=== PATIENT | male | born 1940 | race Caucasian/White ===

== ENCOUNTER → 2021-06-25 | Outpatient (CLI) | payer OTHER ==
[~2021-06-25] MED LIST: CYANOCOBAL1000 MCG/1 SQ; FLOMAX0.4 MG PO; FUROSEMIDE20 MG PO; GLIPIZIDE-METF1 EAC2 PO; IPRAT-ALBUT 0.5-3 ML NEB; LANTUS SOL100 UNIT/1 SQ; LOPRESSOR 25 MG25 MG PO; LORTAB 7.5-3251 EACH PO; NOVOLOG FL100 UNIT/1 INJ; POTASSIUM CHLO10 ME1 PO; PRINIVIL10 MG PO; PROSCAR5 MG PO; PROTONIX 40 MG40 M1 PO; SODIUM CL 0.91000 ML IV; THERAGRAN M TAB1 EA PO
== END ==
LOC: RAD 07:49
DX: Z90.49 Acquired absence of other specified parts of digestive tract (principal); K57.30 Diverticulosis of large intestine without perforation or abscess without bleeding; Z98.0 Intestinal bypass and anastomosis status
CPT/HCPCS: 74270

== ENCOUNTER → 2021-07-08 | Outpatient (CLI) | payer OTHER ==
[2021-07-08 10:56] LABS: HEMOGLOBIN 12.1 gm/dl (14.0-17.5); RED BLOOD COUNT 4.07 M/UL (4.20-5.50); WHITE BLOOD COUNT 7.1 K/UL (4.5-11.0)
[2021-07-08 11:26] LABS: BUN/CREATININE RATIO 12 (0-10)
== END ==
LOC: OPSV2 09:23
PROVIDERS: Anesthesiology
DX: Z01.818 Encounter for other preprocedural examination (principal); Z93.2 Ileostomy status; I45.2 Bifascicular block
CPT/HCPCS: 80048; 85025; 93005

== ENCOUNTER → 2021-09-10 | Outpatient (CLI) | payer OTHER ==
[~2021-09-10] MED LIST changes: +VITAMIN D350 MCG PO
[2021-09-10 11:30] LABS: HEMOGLOBIN 13.1 gm/dl (14.0-17.5); RED BLOOD COUNT 4.26 M/UL (4.20-5.50); WHITE BLOOD COUNT 5.9 K/UL (4.5-11.0)
[2021-09-10 11:51] LABS: BUN/CREATININE RATIO 20 (0-10)
== END ==
LOC: OPSV2 09:30
PROVIDERS: Anesthesiology
DX: Z01.818 Encounter for other preprocedural examination (principal); Z93.2 Ileostomy status; I45.10 Unspecified right bundle-branch block
CPT/HCPCS: 80048; 85025; 93005

== ENCOUNTER 2021-09-21 07:52 | Inpatient (IN) | payer MEDICARE ==
[~2021-09-21] VITALS: Ht 175.3 cm; Wt 83.9 kg
[2021-09-21] MEDS ORDERED: AMMONIUM LACTA140 GM TP (17:30)
[2021-09-21] MEDS ORDERED: PROMETHAZINE HC25 M1 PO (17:30)
[2021-09-22 06:49] LABS: HEMOGLOBIN 12.3 gm/dl (14.0-17.5); RED BLOOD COUNT 4.04 M/UL (4.20-5.50); WHITE BLOOD COUNT 12.2 K/UL (4.5-11.0)
[2021-09-22 09:01] LABS: BUN/CREATININE RATIO 20 (0-10)
[2021-09-23 07:59] LABS: HEMOGLOBIN 11.1 gm/dl (14.0-17.5); RED BLOOD COUNT 3.69 M/UL (4.20-5.50)
[2021-09-23 08:06] LABS: WHITE BLOOD COUNT 8.4 K/UL (4.5-11.0)
[2021-09-23 09:12] LABS: BUN/CREATININE RATIO 16 (0-10)
[2021-09-24 06:59] LABS: HEMOGLOBIN 10.7 gm/dl (14.0-17.5); RED BLOOD COUNT 3.62 M/UL (4.20-5.50); WHITE BLOOD COUNT 7.7 K/UL (4.5-11.0)
[2021-09-24 07:17] LABS: BUN/CREATININE RATIO 13 (0-10)
[2021-09-25 07:18] LABS: HEMOGLOBIN 11.1 gm/dl (14.0-17.5); RED BLOOD COUNT 3.64 M/UL (4.20-5.50)
[2021-09-25 07:19] LABS: WHITE BLOOD COUNT 4.9 K/UL (4.5-11.0)
[2021-09-25 07:35] LABS: BUN/CREATININE RATIO 16 (0-10)
[2021-09-26 09:10] LABS: HEMOGLOBIN 11.7 gm/dl (14.0-17.5); RED BLOOD COUNT 3.82 M/UL (4.20-5.50); WHITE BLOOD COUNT 5.1 K/UL (4.5-11.0)
[2021-09-26 09:28] LABS: BUN/CREATININE RATIO 16 (0-10)
[2021-09-28] MEDS ORDERED: METAMUCIL PACK3.4 GM PO (10:54)
[2021-09-28] MEDS ORDERED: HYDROCODON-ACE1 EAC2 PO (10:54)
[2021-09-28] MEDS ORDERED: PHENERGAN 25 MG25 M1 PO (10:54)
--- NOTE | 2021-09-28 11:52 | NUR ---
REPORT CALLED TO PENDING SALE TO [facility] FOR CONTINUATION OF CARE.
--- NOTE | 2021-09-28 11:53 | NUR ---
RN INFORMED [facility] OF PICC LINE DRESSING CHANGE WEEKLY PER DR. OCHOA AND POSSIBLE REMOVAL OF PICC LINE ON FOLLOW-UP APPOINTMENT WITH DR. OCHOA. WIRE FRAME DIPPER CHANUTE TO FAX PATIENT RESUMPTION OF CARE TO [facility]CE[facility]ING [facility].
== END 2021-09-28 13:10 | disposition home health service (06) | DRG 331 ==
LOC: OR 07:52 → MED SURG 4 14:37
PROVIDERS: ADMIT Surgery
PROC: 0DQB0ZZ Repair Ileum, Open Approach (ICD-10-PCS; principal; 2021-09-21 10:30)
PROC: 3E02340 Introduction of Influenza Vaccine into Muscle, Percutaneous Approach (ICD-10-PCS; 2021-09-28)
DX: Z43.2 Encounter for attention to ileostomy (principal); N40.0 Benign prostatic hyperplasia without lower urinary tract symptoms; E86.0 Dehydration; Z20.822 Contact with and (suspected) exposure to COVID-19; N21.0 Calculus in bladder; D64.9 Anemia, unspecified; K21.9 Gastro-esophageal reflux disease without esophagitis; I45.10 Unspecified right bundle-branch block; E11.9 Type 2 diabetes mellitus without complications; I10 Essential (primary) hypertension; Z90.49 Acquired absence of other specified parts of digestive tract; Z79.4 Long term (current) use of insulin; Z87.442 Personal history of urinary calculi; Z78.9 Other specified health status; Z23 Encounter for immunization
CPT/HCPCS: 36415; 36430; 80048; 82962; 85025; 90686; 94640; 94664; 94760; 97116-GP-CQ; 97162; 97530; 97530-GP-CQ; G0008; J0690; J1100; J1170; J2001; J2270; J2405; J2704; J2710; J3010; J7120

== ENCOUNTER 2021-10-02 14:28 | Emergency (ER) | payer MEDICARE ==
[~2021-10-02 14:28] MED LIST changes: +AMMONIUM LACTA140 GM TP; +HYDROCODON-ACE1 EAC2 PO; +METAMUCIL PACK3.4 GM PO; +PHENERGAN 25 MG25 M1 PO; +PROMETHAZINE HC25 M1 PO
[2021-10-02] MEDS ORDERED: CEFUROXIME500 MG PO (15:42)
== END 2021-10-02 16:27 | disposition home or self-care (01) ==
LOC: ER1 14:28
DX: R33.9 Retention of urine, unspecified (principal); I10 Essential (primary) hypertension; E11.9 Type 2 diabetes mellitus without complications
CPT/HCPCS: 51702; 81001; 87077; 87086; 87186; 99283

== ENCOUNTER 2021-10-09 16:00 | Emergency (ER) | payer MEDICARE ==
[~2021-10-09 16:00] MED LIST changes: +CEFUROXIME500 MG PO
[2021-10-09 16:46] LABS: HEMOGLOBIN 11.8 gm/dl (14.0-17.5); RED BLOOD COUNT 3.93 M/UL (4.20-5.50); WHITE BLOOD COUNT 7.3 K/UL (4.5-11.0)
[2021-10-09 16:58] LABS: BUN/CREATININE RATIO 8 (0-10)
[2021-10-09] MEDS ORDERED: COLACE 100MG C100 MG PO (19:26)
[2021-10-09] MEDS ORDERED: MIRALAX17 GM PO (19:26)
== END 2021-10-09 22:10 | disposition home or self-care (01) ==
LOC: ER1 16:00
PROVIDERS: Student in an Organized Health Care Education/Training Program
DX: R33.9 Retention of urine, unspecified (principal); R31.0 Gross hematuria; L89.322 Pressure ulcer of left buttock, stage 2
CPT/HCPCS: 51702; 80048; 81001; 85025; 99283